=== PATIENT | female | born 1955 ===

== ENCOUNTER 2022-04-17 05:35 | Outpatient (CLI) | payer SELFPAY ==
[~2022-04-17] VITALS: Ht 150 cm; Wt 54.5 kg
[2022-04-18] MEDS ORDERED: EMPA25TA PO (09:34)
[2022-04-18] MEDS ORDERED: LOSA50TA63 PO (09:34)
[2022-04-18] MEDS ORDERED: METF-478 PO (09:34)
[2022-04-18] MEDS ORDERED: ATOR40TA70 PO (09:34)
== END 2022-04-18 09:35 | disposition home or self-care (01) ==
LOC: PREOP 05:35
PROVIDERS: ATTEND Specialist
DX: Z01.818 Encounter for other preprocedural examination (principal)

== ENCOUNTER → 2022-04-20 | Day surgery (SDC) | payer OTHER ==
[~2022-04-20] VITALS: Ht 150 cm; Wt 54.5 kg
[~2022-04-20] MED LIST: ATOR40TA70 PO; EMPA25TA PO; LOSA50TA63 PO; METF-478 PO; MIDAZOLAM 2 MG/2 ML (VERSED) VIAL ONE; MOXIFLOXACIN OPHTH SOLN 5 MG/ML 0.3 ML SYRINGE OP ONE; POVIDONE (BETADINE) OPHTH SOLN 5% 30 ML OP ONE; TIMOLOL MALEATE 0.5% 5 ML (TIMOPTIC) BTL OU PRN; acetaZOLAMIDE ER 500 MG CAP (DIAMOX SEQUELS) PO ONE
[2022-04-20 11:24] VITALS: BP 168/83
[2022-04-20] MEDS: TETRACAINE 0.5% OPHTH SOLN 4 ML BTL (SINGLE DOSE ONLY) OU PRN ×4 (11:28→11:38)
[2022-04-20] MEDS: PHENYLEPHRINE 10% OPHTH (NEO-SYN) 5 ML BTL OU SCH ×3 (11:32→11:43)
[2022-04-20] MEDS: TROPICAMIDE 1% OPH SOLN (MYDRIACYL) 15 ML BTL OP SCH ×3 (11:32→11:43)
--- NOTE | 2022-04-20 12:06 | Ophthalmologist Pre-Op Note ---
Pre-Operative Progress Note H&P Reviewed The H&P was reviewed, patient examined and no changes noted. Date H&P Reviewed: Apr 20, 2022 Time H&P Reviewed: 12:06 Pre-Op Dx Cataract, Right Eye SHELBI REIS MD Apr 20, 2022 12:06
--- NOTE | 2022-04-20 12:32 | Ophthalmology Operative Report ---
Cataract removal/placement IOL PREOPERATIVE DIAGNOSIS: 1. Mature Cataract Right Eye 2. Stain the anterior capsule with Vision Blue. POSTOPERATIVE DIAGNOSIS: 1. Mature Cataract Right Eye 2. Stain the anterior capsule with Vision Blue. PROCEDURE: 1. Cataract removal and placement of posterior chamber implant, right eye. 2. Stain the anterior capsule with Vision Blue. SURGEON: Dennys Reis ANESTHESIA: Topical with sedation COMPLICATIONS: None ESTIMATED BLOOD LOSS: Minimal DESCRIPTION OF PROCEDURE: After proper informed consent was obtained, the patient was taken to the Operating Room and the right eye was anesthetized with tetracaine. The right eye was then prepped and draped in the usual manner. A wire lid speculum was placed. A paracentesis was made at the left hand position. Preservative free lidocaine was injected into anterior chamber followed by viscoelastic. A clear corneal incision was made in the temporal position. A capsulorrhexis was performed and the central nuclear and cortical material were removed. Vision blue was used to visualize capsule. The posterior capsule was polished and Isaac 22.0 AU00T0 IOL was placed into the capsular bag. The residual viscoela stic was aspirated and balanced saline solution was injected into the anterior chamber. Moxifloxacin was injected into the anterior chamber. The wound was checked and found to be water tight. The patient tolerated the procedure well without complications. DENNYS REIS MD Apr 20, 2022 12:32
--- NOTE | 2022-04-20 14:12 | Anesthesia-General Post-Op ---
MAC Patient Condition Mental Status/LOC: Same as Preop Cardiovascular: Satisfactory Nausea/Vomiting: Absent Respiratory: Satisfactory Pain: Controlled Complications: Absent Post Op Complications Complications None Follow Up Care/Instructions Patient Instructions None needed. Anesthesiology Discharge Order Discharge Order Patient is doing well, no complaints, stable vital signs, no apparent adverse anesthesia problems. No complications reported per nursing. JER YANEZ CRNA Apr 20, 2022 14:12
== END | disposition home or self-care (01) ==
LOC: SDC 10:45
PROVIDERS: ATTEND Specialist
DX: E11.36 Type 2 diabetes mellitus with diabetic cataract (principal); H25.89 Other age-related cataract; Z79.84 Long term (current) use of oral hypoglycemic drugs
CPT/HCPCS: 66984; V2632

== ENCOUNTER 2023-04-17 06:23 | Outpatient (CLI) | payer SELFPAY ==
[~2023-04-17] VITALS: Ht 152.4 cm; Wt 63.5 kg
[~2023-04-17 06:23] MED LIST changes: -MIDAZOLAM 2 MG/2 ML (VERSED) VIAL ONE; -MOXIFLOXACIN OPHTH SOLN 5 MG/ML 0.3 ML SYRINGE OP ONE; -POVIDONE (BETADINE) OPHTH SOLN 5% 30 ML OP ONE; -TIMOLOL MALEATE 0.5% 5 ML (TIMOPTIC) BTL OU PRN; -acetaZOLAMIDE ER 500 MG CAP (DIAMOX SEQUELS) PO ONE
== END 2023-04-19 10:14 | disposition home or self-care (01) ==
LOC: PREOP 06:23
PROVIDERS: ATTEND Surgery
DX: Z01.818 Encounter for other preprocedural examination (principal)

== ENCOUNTER 2023-04-29 07:29 | Day surgery (SDC) | payer SELFPAY ==
[~2023-04-29] VITALS: Ht 152.4 cm; Wt 63.5 kg
[2023-04-29] MEDS ORDERED: LACTATED RINGERS 1,000 ML 1,000 ML IV STA (07:31)
[2023-04-29] MEDS ORDERED: HURRICAINE EXT TUBE (BENZOCAINE) XX PRN (07:45)
[2023-04-29 08:10] VITALS: BP 180/84
[2023-04-29] MEDS ORDERED: MIDAZOLAM INJ 2 MG/2 ML VIAL ONE (08:17)
--- NOTE | 2023-04-29 08:28 | Progress Note-Pre Operative ---
Pre-Operative Progress Note Date of Available H&P: Apr 16, 2023 Date H&P Reviewed: Apr 29, 2023 Time H&P Reviewed: 08:23 History & Physical: H&P Reviewed, Patient Examed, No changes noted Pre-Operative Diagnosis: Screening, RAMOS URBINA DO Apr 29, 2023 08:27
[2023-04-29 08:45] VITALS: BP 124/57
--- NOTE | 2023-04-29 08:47 | Progress Note-Post Operative ---
Post-Operative Progess Note Surgeon (s)/Law Reporter (s) Surgeon RAMOS NAM DO Law Reporter: none Pre-Operative Diagnosis Screening, GERD Post-Operative Diagnosis Mild Gastritis Hiatal hernia Retained food Fecal impaction Procedure & Operative Findings Date of Procedure 04/29/23 Procedure Performed/Findings EGD with biopsy Colonoscopy cut short PROCEDURE NOTE: After informed consent was obtained, the patient was brought to the endoscopy suite, placed in bed in left lateral decubitus position. She was administered IV sedation by the EQUIPMENT MAINTENANCE TECHNICIAN who then monitored vitals the entire time, heart rate, blood pressure and pulse ox and the scope was inserted down the mouth through the esophagus into the stomach. On the way down, I did not see any esophagitis, took a picture, pushed into the stomach, and encountered some retained vegetable matter. I went out and talked to family and apparently she ate around 5pm; real food. I pushed past the antrum into the duodenum; duodenum looked good. Pulled back and did a biopsy of the antrum, then retroflexed the scope, saw a small Grade IV hiatal hernia, took a picture of this and then pulled the scope into the GE junction and took another picture of the hiatal hernia. The GE junction was perfectly round, so I elected not to do a biopsy. Pushed the scope back into the stomach, suctioned all the air out of the stomach. At this point pulled the scope up the esophagus and out the mouth. Switched camera, switched gloves, went down below and started the colonoscopy. Unfortunately, immediately I encountered fully formed stool and elected to cut the colonoscopy short. I did not even take a picture of the internal hemorrhoids. The patient tolerated the procedure and she recovered in the endoscopy suite. Recommended for repeat colonoscopy in a month or two. Family said they were told pt couldn't eat after midnight, I asked if they had our colon prep instructions in [place] and they said yes. Will have to repeat the colonoscopy. Anesthesia Type IV sedation by EQUIPMENT MAINTENANCE TECHNICIAN Estimated Blood Loss Estimated blood loss (mL): scant Specimens/Packing Specimens Removed antral bx body of stomach bx RAMOS NAM DO Apr 29, 2023 08:47
--- NOTE | 2023-04-29 08:48 | Endoscopy Discharge Instruct ---
Endo Procedure/Findings Findings 1.: Gastritis 2.: Hiatal Hernia 3.: Other Findings (fecal impaction) Discharge Instructions - Activity: You might feel a little sleepy until tomorrow. This is due to the medicine you received to relax you. Until tomorrow, you should: NOT drive a car, operate machinery or power tools. NOT drink any alcoholic beverages. NOT make any important decisions or sign importortant papers. Do not return to work until tomorrow, unless otherwise instructed. Resume previous activities tomorrow. Diet: Start by taking liquids. If you tolerate liquids, advance to solid food. 1.: EGD in 3 years 2.: Other Recommendation (Colonoscopy in a month or two) Notify Physician - If you experience excessive bleeding, unusual abdominal pain, fever, or chest pain, contact your doctor immediately. Follow-Up: Other Follow up in my office in one week RAMOS NAM DO Apr 29, 2023 08:48
[2023-04-29 08:50] VITALS: BP 114/58
[2023-04-29 08:55] VITALS: BP 110/62
[2023-04-29 09:00] VITALS: BP 125/66
[2023-04-29 09:35] VITALS: BP 125/66
--- NOTE | 2023-04-29 11:33 | Anesthesia-General Post-Op ---
MAC Patient Condition Mental Status/LOC: Same as Preop Cardiovascular: Satisfactory Nausea/Vomiting: Absent Respiratory: Satisfactory Pain: Controlled Complications: Absent Post Op Complications Complications None Follow Up Care/Instructions Patient Instructions None needed. Anesthesiology Discharge Order Discharge Order Patient is doing well, no complaints, stable vital signs, no apparent adverse anesthesia problems. No complications reported per nursing. LUIS ANGEL KOROMA CRNA Apr 29, 2023 11:33
== END 2023-04-29 09:35 | disposition home or self-care (01) ==
LOC: ENDO 07:29
PROVIDERS: ATTEND Surgery
DX: Z12.11 Encounter for screening for malignant neoplasm of colon (principal); K29.70 Gastritis, unspecified, without bleeding; K21.9 Gastro-esophageal reflux disease without esophagitis; K56.41 Fecal impaction; K31.89 Other diseases of stomach and duodenum; K44.9 Diaphragmatic hernia without obstruction or gangrene; K64.8 Other hemorrhoids
CPT/HCPCS: 43239; 45378; 82947; G0416; 88305